=== PATIENT | male | born 1985 | race Caucasian/White ===

== ENCOUNTER 2018-05-02 16:26 | Emergency (ER) | payer BC ==
[2018-05-02 17:23] VITALS: RESP 18
--- NOTE | 2018-05-02 18:44 | ED ---
General Adult HPI - General Chief complaint: Back Pain/Injury Stated complaint: Back pain Time Seen by Provider: 05/02/18 18:05 Source: patient, RN notes reviewed Mode of arrival: wheelchair Limitations: no limitations - History of Present Illness Initial comments: Patient 32-year-old male significant past medical history for low back pain and previous surgery, presented to the emergency room today with a chief complaint of increased back pain over the last 3 weeks. Denies any specific injury or trauma. He does admit that 3 weeks ago began having some symptoms. Does admit that he saw the family doctor yesterday who recommended possible MRI. He does not that he received an injection of steroids yesterday. States that he felt some muscle spasms in his legs bilaterally last night. States today they felt Weak when he was at work. He states they're feeling better at this time. He denies any bowel or bladder incontinence retention. Denies any saddle anesthesia. Patient does admit that he primarily is feeling some pain shooting down to the right proximal to the knee. He states that at times had some pain into the left. He denies any other complaints. States he is using ibuprofen and tramadol for pain. Patient denies any recent fever, chills, shortness of breath, chest pain, abdominal pain, nausea or vomiting, dysuria or hematuria, constipation or diarrhea, headaches or visual changes, or any other complaints. - Related Data Home Medications Medication Instructions Recorded Confirmed Ibuprofen [Motrin] 800 mg PO Q6H PRN 05/02/18 05/02/18 traMADol HCL [Ultram] 50 mg PO Q4HR PRN 05/02/18 05/02/18 Previous Rx's Medication Instructions Recorded Baclofen 10 mg PO TID #20 tab 05/02/18 Allergies Allergy/AdvReac Type Severity Reaction Status Date / Time No Known Allergies Allergy Verified 05/02/18 18:10 Review of Systems ROS Statement: Those systems with pertinent positive or pertinent negative responses have been documented in the HPI. ROS Other: All systems not noted in ROS Statement are negative. Past Medical History Past Medical History: Hypertension Additional Past Medical History / Comment(s): back pain History of Any Multi-Drug Resistant Organisms: None Reported Past Surgical History: Appendectomy, Back Surgery Additional Past Surgical History / Comment(s): Laminectomy L5 Past Anesthesia/Blood Transfusion Reactions: No Reported Reaction Past Psychological History: No Psychological Hx Reported Smoking Status: Current every day smoker Past Alcohol Use History: Occasional Past Drug Use History: None Reported - Past Family History Father Family Medical History: Hypertension General Exam - General Exam Comments Initial Comments: General: The patient is awake and alert, in no distress, and does not appear acutely ill. Eye: Pupils are equal, round and reactive to light, extra-ocular movements are intact. No nystagmus. There is normal conjunctiva bilaterally. No signs of icterus. Ears, nose, mouth and throat: There are moist mucous membranes and no oral lesions. Neck: The neck is supple, there is no tenderness or JVD. Cardiovascular: There is a regular rate and rhythm. No murmur, rub or gallop is appreciated. Respiratory: Lungs are clear to auscultation, respirations are non-labored, breath sounds are equal. No wheezes, stridor, rales, or rhonchi. Musculoskeletal: Normal ROM, no tenderness. Strength 5/5. Sensation intact. Pulses equal bilaterally 2+. Neurological: A&O x 3. CN II-XII intact, There are no obvious motor or sensory deficits. Coordination appears grossly intact. Speech is normal. Skin: Skin is warm and dry and no rashes or lesions are noted. Psychiatric: Cooperative, appropriate mood & affect, normal judgment. Limitations: no limitations Course Vital Signs 05/02/18 17:18 Temperature 98.3 F Pulse Rate 72 Respiratory 18 Rate Blood Pressure 159/97 O2 Sat by Pulse 98 Oximetry Medical Decision Making - Medical Decision Making X-ray reviewed negative for any acute abnormality. Results were discussed with the patient. Patient will be discharged home with some muscle relaxers advised continue previous to prescribed medications. Advised following up with the family doctor or orthopedics for further evaluation and possible MRI. Advised return for worsening of concerns. Patient states understanding and is in agreement. Disposition Clinical Impression: Acute low back pain Disposition: HOME SELF-CARE Condition: Good Instructions: Acute Low Back Pain (ED) Additional Instructions: Please use medication as discussed. Please follow-up with family doctor in the next 2 days of symptoms have not improved. Please return to emergency room if the symptoms increase or worsen or for any other concerns. Prescriptions: Baclofen 10 mg PO TID #20 tab Is patient prescribed a controlled substance at d/c from ED?: No Referrals: Pietro Rangel DO [Primary Care Provider] - 1-2 days Time of Disposition: 19:01
--- NOTE | 2018-05-02 18:47 | XR ---
EXAMINATION TYPE: XR lumbar spine 2 or 3V DATE OF EXAM: 05/02/2018 COMPARISON: NONE HISTORY: Low back pain TECHNIQUE: 3 views FINDINGS: The vertebra have normal alignment. Posterior elements are intact. There is some narrowing at this spaces from L3 to S1. There is no compression fracture. Sacroiliac joints appear intact. IMPRESSION: Spondylotic changes in the mid and lower lumbar spine. No fracture.
[2018-05-02 19:46] VITALS: BP 153/74; PULSE 68; TEMP 98.7
== END 2018-05-02 19:40 | disposition home or self-care (01) ==
LOC: EC 16:26
DX: M54.5 Low back pain (principal); F17.200 Nicotine dependence, unspecified, uncomplicated; Z98.890 Other specified postprocedural states
CPT/HCPCS: 72100; 99283

== ENCOUNTER → 2021-05-10 | Outpatient (CLI) | payer BC | END | disposition home or self-care (01) | LOC: RADMRIMAIN 20:40 | PROVIDERS: ATTEND Orthopaedic Surgery | DX: Z53.9 Procedure and treatment not carried out, unspecified reason (principal) ==

== ENCOUNTER → 2022-06-27 | Outpatient (CLI) | payer BC ==
--- NOTE | 2022-06-27 15:42 | XR ---
EXAMINATION TYPE: XR lumbar spine 2 or 3V DATE OF EXAM: 06/27/2022 CLINICAL HISTORY: Lumbar pain TECHNIQUE: Frontal, oblique, and coned in L5-S1 views of the lumbar spine were obtained. COMPARISON: Lumbar spine radiograph 05/02/2018, CT abdomen pelvis 04/27/2016. FINDINGS: There are 5 lumbar type vertebral bodies identified. No acute fracture or dislocation. Mild retrolist hesis of L2 on L3. Vertebral body heights are within normal limits. Multilevel disc space narrowed with endplate sclerosis and osteophyte formation. This is most pronounced at L2-L3. Multilevel facet arthropathy. The overlying soft tissue appears unremarkable. IMPRESSION: No acute fracture or dislocation is seen in the lumbar spine. Mild degenerative disc disease.
== END | disposition home or self-care (01) ==
LOC: RADXRMAIN 15:09
PROVIDERS: ATTEND Family Medicine
DX: M51.26 Other intervertebral disc displacement, lumbar region (principal)
CPT/HCPCS: 72100